=== PATIENT | female | born 1995 | race Caucasian/White ===

== ENCOUNTER 2017-03-09 22:30 | Emergency (ER) | payer MEDICAID, OTHER ==
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
[2017-03-09] MEDS ORDERED: SILVER SULFADIAZINE 25 GM CREAM TOP ONE (22:50)
[2017-03-09] MEDS ORDERED: ACETAMINOPHEN 325 MG TAB PO ONE (22:51)
[2017-03-09] MEDS ORDERED: Diph,Pert(Acell),Tet Vac 0.5 ML SYR IM ONE (22:52)
== END 2017-03-09 23:13 | disposition home or self-care (01) ==
LOC: ER 22:30
DX: T23.552A Corrosion of first degree of left palm, initial encounter (principal)
CPT/HCPCS: 16000; 90715; 96372; 99283

== ENCOUNTER 2018-03-31 22:12 | Emergency (ER) | payer MEDICAID ==
[2018-03-31] MEDS ORDERED: ACETAMINOPHEN 325 MG TAB PO ONE (22:34)
--- NOTE | 2018-03-31 22:37 | Emergency Department Record ---
History of Present Illness - General Chief Complaint: Ankle/Foot Injury Stated Complaint: R ANKLE PAIN Time Seen by Provider: 03/31/18 22:18 Source: Patient Mode of Arrival: Ambulatory Limitations: No limitations - History of Present Illness Initial Comments: The patient is here due to R ankle pain. She originally injured it 3 weeks ago and had a neg xray at that time. Since she has been using a R ankle walking boot and tonight she was walking and felt more pain in the area similar to when she originally injured it. She is scheduled for an MRI later this week. Complaint: Ankle injury Onset/Timin -: Week(s) Place: Home Severity: Moderate, Severe Severity scale (1-10): 8 Improves With: Immobilization Worsens With: Weight bearing Context: Fall Associated Symptoms: Snap/pop sensation, Ambulatory Treatments Prior to Arrival: Splint - Related Data Home Medications Medication Instructions Recorded Confirmed Last Taken Hydrocodone/Acetaminophen [[place] 1 each PO Q6H PRN 03/31/18 03/31/18 Unknown 5-325 Tablet] Levonorgestrel [Mirena] 1 each IY DAILY 03/31/18 03/31/18 Unknown Omeprazole 40 mg PO DAILY 03/31/18 03/31/18 Unknown Allergies Allergy/AdvReac Type Severity Reaction Status Date / Time cefprozil [From Cefzil] Allergy HIVES Verified 09/06/15 13:48 Travel Screening - Travel/Exposure Within Last 30 Days Have you traveled within the last 30 days?: No - Travel Symptoms Symptom Screening: None Review of Systems Constitutional: Denies: Chills, Fever Eyes: Denies: Eye discharge ENT: Denies: Congestion Respiratory: Denies: Cough, Dyspnea Past Medical History - SOCIAL HISTORY Smoking Status: Never smoker Alcohol Use: Occasional Drug Use: Occasional Drug Use Detail:: Marijuana - RESPIRATORY Hx Respiratory Disorders: No - CARDIOVASCULAR Hx Cardio Disorders: No - NEURO Hx Neuro Disorders: Yes Hx Headaches: Yes - GI Hx GI Disorders: No - Hx Genitourinary Disorders: No - ENDOCRINE Hx Endocrine Disorders: No - MUSCULOSKELETAL Hx Musculoskeletal Disorders: Yes Comment:: knee pain - PSYCH Hx Psych Problems: Yes Hx Anxiety: Yes Hx Depression: Yes Comment:: PTSD - HEMATOLOGY/ONCOLOGY Hx Hematology/Oncology Disorders: No Family Medical History Any Significant Family History?: Yes Family Hx Comment (NOT TO BE USED IN PLACE OF ITEMS BELOW): Mother-MS Hx Cancer: Mother, Grandparents Hx Diabetes: Father Hx HTN: Father Hx Seizures: Grandparents *Seizure Comment: Epilepsy Physical Exam - General General Appearance: Alert, Cooperative, No acute distress - Head Head exam: Atraumatic, Normocephalic - Eye Eye exam: Normal appearance - Extremities Extremities exam: Normal inspection, Tenderness (There is diffuse anterior, lateral and posterior ankle tenderness.), Other (The R foot is NVI. There is no ligamentous laxity.). negative: Calf tenderness, Full ROM, Joint swelling, Pedal edema - Neurological Neurological exam: Alert. negative: Motor sensory deficit Course Vital Signs 03/31/18 22:15 Temperature 98.5 F Pulse Rate 85 Respiratory 16 Rate Blood Pressure 139/85 Pulse Ox 100 - Reevaluation(s) Reevaluation #1: I did discuss the neg xrays with the patient and need to continue to have the MRI later this week. 03/31/18 22:51 Medical Decision Making - Data Complexity MDM Data: X-Ray Ordered and/or Reviewed - Radiology Data Radiology results: Report reviewed (R ankle: Neg for any acute injury.) Disposition Disposition: Discharge Clinical Impression: Ankle pain, right Qualifiers: Chronicity: acute Qualified Code(s): M25.571 - Pain in right ankle and joints of right foot Disposition: Home, Self-Care Condition: (2) Stable Instructions: Ankle Sprain (ED) Additional Instructions: Please continue your home pain medicines and wear your walking boot at all times. Please get your MRI as planned and see your family doctor next week for recheck. Forms: Patient Portal Access Time of Disposition: 22:53 Quality - Quality Measures Quality Measures: N/A - Blood Pressure Screening View Details: Yes Does Patient Have Any of the Following: No Blood Pressure Classification: Pre-Hypertensive BP Reading Systolic Measurement: 139 Diastolic Measurement: 85 Screening for High Blood Pressure: < Pre-Hypertensive BP, F/U Documented > [ G8950] Pre-Hypertensive Follow-up Interventions: Referral to alternative/primary care provider.
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
== END 2018-03-31 23:00 | disposition home or self-care (01) ==
LOC: ER 22:12
DX: G89.11 Acute pain due to trauma (principal); M25.571 Pain in right ankle and joints of right foot; X50.0XXA Overexertion from strenuous movement or load, initial encounter; Y92.009 Unspecified place in unspecified non-institutional (private) residence as the place of occurrence of the external cause
CPT/HCPCS: 99283

== ENCOUNTER 2018-08-26 11:52 | Emergency (ER) | payer MEDICAID ==
--- NOTE | 2018-08-26 12:29 | Emergency Department Record ---
History of Present Illness - General Chief complaint: Lower Extremity Pain Stated complaint: HIP PAIN RIGHT Time Seen by Provider: 08/26/18 12:06 Source: Patient Mode of Arrival: Ambulatory Limitations: No limitations - History of Present Illness Initial comments: The patient is here due to R hip pain for 2 months. It seems to hurt more with walking and twisting the R hip. The patient denies any trauma, injury or falls. She also denies any AP, nausea, vomiting, or diarrhea. MD Complaint: Joint pain Onset/Timin -: Month(s) Severity scale (1-10): 7 Quality: Aching, Stabbing Consistency: Constant Improves with: Nothing Worsens with: Walking, Weight bearing Associated Symptoms: Denies other symptoms - Related Data Home Medications Medication Instructions Recorded Confirmed Last Taken Hyoscyamine Sulfate [Levsin] 0.125 mg PO Q4H 08/26/18 08/26/18 08/25/18 Allergies Allergy/AdvReac Type Severity Reaction Status Date / Time cefprozil [From Cefzil] Allergy HIVES Verified 08/26/18 12:05 Travel Screening - Travel/Exposure Within Last 30 Days Have you traveled within the last 30 days?: Yes Location Detail:: [place] - Travel/Exposure Within Last Year Have you traveled outside the [place] in the last year?: No - Additonal Travel Details Have you been exposed to anyone with a communicable illness?: No - Travel Symptoms Symptom Screening: None Review of Systems Constitutional: Denies: Chills, Fever Eyes: Denies: Eye discharge ENT: Denies: Congestion Respiratory: Denies: Cough, Dyspnea Past Medical History - SOCIAL HISTORY Smoking Status: Never smoker Alcohol Use: Occasional Drug Use: Occasional Drug Use Detail:: Marijuana - RESPIRATORY Hx Respiratory Disorders: No - CARDIOVASCULAR Hx Cardio Disorders: No - NEURO Hx Neuro Disorders: Yes Hx Headaches: Yes - GI Hx GI Disorders: Yes Hx Irritable Bowel: Yes - Hx Genitourinary Disorders: No - ENDOCRINE Hx Endocrine Disorders: No - MUSCULOSKELETAL Hx Musculoskeletal Disorders: Yes Comment:: knee pain/ankle tear - PSYCH Hx Psych Problems: Yes Hx Anxiety: Yes Hx Depression: Yes Comment:: PTSD - HEMATOLOGY/ONCOLOGY Hx Hematology/Oncology Disorders: No Family Medical History Any Significant Family History?: No Family Hx Comment (NOT TO BE USED IN PLACE OF ITEMS BELOW): Mother-MS Hx Cancer: Mother, Grandparents Hx Diabetes: Father Hx HTN: Father Hx Seizures: Grandparents *Seizure Comment: Epilepsy Physical Exam - General General Appearance: Alert, Oriented x3, Cooperative, No acute distress - Head Head exam: Atraumatic, Normocephalic, Normal inspection - Eye Eye exam: Normal appearance, PERRL, EOMI - Neck Neck exam: Normal inspection, Full ROM. negative: Tenderness - Respiratory Respiratory exam: Normal lung sounds bilaterally. negative: Respiratory distress - Cardiovascular Cardiovascular Exam: Regular rate, Normal rhythm, Normal heart sounds - GI/Abdominal GI/Abdominal exam: Soft, Normal bowel sounds. negative: Rebound, Rigid, Tenderness - Extremities Extremities exam: Normal inspection, Full ROM (There is full ROM of the R hip with pain on full flexion, extension and internal rotation.), Normal capillary refill. negative: Joint swelling, Tenderness (There is mild R anterior hip tenderness to palpation.) Image of Full Body: 1 - Area of pain and tenderness. - Back Back exam: Reports: Normal inspection. Denies: Vertebral tenderness - Neurological Neurological exam: Alert, Normal gait. negative: Abnormal gait, Motor sensory deficit - Skin Skin exam: negative: Rash Course Vital Signs 08/26/18 11:54 Temperature 98.0 F Pulse Rate 78 Respiratory 16 Rate Blood Pressure 137/88 Pulse Ox 99 - Reevaluation(s) Reevaluation #1: The patient did decline any pain medicine here. She is up walking with no difficulty. I did discuss the need for further evaluation by her PCP next week. She is to take the Naprosyn for pain and F/U with her PCP. 08/26/18 13:20 Medical Decision Making - Data Complexity MDM Data: Labs Ordered and/or Reviewed, X-Ray Ordered and/or Reviewed - Radiology Data Radiology results: Report reviewed (R Hip: Neg.) Disposition Disposition: Discharge Clinical Impression: Hip pain, right Disposition: Home, Self-Care Condition: (2) Stable Instructions: Hip Pain (ED) Additional Instructions: Please take the Naprosyn for pain and please see your family doctor for recheck next week. Return to the ER for any worsening symptoms. Forms: Patient Portal Access Time of Disposition: 13:19 Quality - Quality Measures Quality Measures: N/A - Blood Pressure Screening View Details: Yes Does Patient Have Any of the Following: No Blood Pressure Classification: Pre-Hypertensive BP Reading Systolic Measurement: 137 Diastolic Measurement: 88 Screening for High Blood Pressure: < Pre-Hypertensive BP, F/U Documented > [G8950] Pre-Hypertensive Follow-up Interventions: Referral to alternative/primary care provider.
[2018-08-26 12:30] LABS: URINE APPEARANCE CLEAR; URINE BILIRUBIN NEGATIVE (NEGATIVE); URINE BLOOD MODERATE (NEGATIVE); URINE COLOR YELLOW; URINE GLUCOSE (UA) NEGATIVE (NEGATIVE); URINE KETONE NEGATIVE (NEGATIVE); URINE LEUKOCYTE ESTERASE NEGATIVE (NEGATIVE); URINE NITRITE NEGATIVE (NEGATIVE); URINE PROTEIN NEGATIVE (NEGATIVE); URINE UROBILINOGEN 0.2 E.U./dL (0.20 - 1.00)
[2018-08-26 12:40] LABS: HCG,QUALITATIVE URINE NEGATIVE (NEGATIVE)
[2018-08-26 12:43] LABS: URINE BACTERIA NONE SEEN; URINE MUCUS LIGHT; URINE WBC 0 - 2 (0-2/hpf)
[2018-08-26 12:44] LABS: URINE AMORPHOUS SEDIMENT 1+
--- NOTE | 2018-08-28 12:59 | RADIOLOGY REPORT ---
EXAM: HIP,UNILAT, 2-3 VIEW RIGHT HISTORY: WORSENING RIGHT HIP PAIN. FALL TWO MONTHS AGO. TECHNIQUE: An AP view of the pelvis is obtained as well as AP and frog-leg lateral views of the right hip. COMPARISON: CT abdomen and pelvis with contrast dated 09/09/2012. ENCOUNTER: Initial. FINDINGS: The osseous structures are normally mineralized. No fracture, dislocation, or destructive bone lesion is seen. The hip joints, sacroiliac joints, and lower lumbar spine are normal in appearance. No lytic or blastic bone lesion. No focal soft tissue abnormality. An intrauterine contraceptive device is in place centered in the midline at the mid to lower pelvis. IMPRESSION: NORMAL RIGHT HIP. JOB NUMBER: [id number] MTDD
== END 2018-08-26 13:23 | disposition home or self-care (01) ==
LOC: ER 11:52
DX: M25.551 Pain in right hip (principal)
CPT/HCPCS: 81001; 81025; 99283

== ENCOUNTER 2019-04-07 20:23 | Emergency (ER) | payer MEDICAID ==
[2019-04-07] MEDS ORDERED: IBUPROFEN 600 MG TABLET PO ONE (20:41)
[2019-04-07] MEDS ORDERED: ACETAMINOPHEN 500 MG TABLET PO ONE (20:41)
--- NOTE | 2019-04-07 20:45 | Emergency Department Record ---
History of Present Illness - General Chief Complaint: Fever Stated Complaint: FEVER AMD EYES HURT Time Seen by Provider: 04/07/19 20:28 Source: Patient Mode of Arrival: Ambulatory Limitations: No limitations - History of Present Illness Initial Comments: 23 yo female presents to ED for evaluation of fever for the past 3 days associated with body aches. Patient denies sore throat, denies neck stiffness symptoms, denies productive cough symptoms, and denies abdominal pain, nausea, or vomiting symptoms. Patient denies urinary symptoms or rash on examination. Patient denies health problems at her baseline, denies receiving an influenza vaccination this year. Patient has not taken anything for her fever symptoms in 6 hours. MD Complaint: Fever Onset/Timin -: Days(s) Associated Symptoms: Myalgias Treatments Prior to Arrival: None - Related Data Home Medications Medication Instructions Recorded Confirmed Last Taken Lamotrigine [Lamictal] 50 mg PO DAILY 04/07/19 04/07/19 04/06/19 Allergies Allergy/AdvReac Type Severity Reaction Status Date / Time cefprozil [From Cefzil] Allergy HIVES Verified 08/26/18 12:05 Review of Systems Constitutional: Reports: Fever. Denies: Chills, Malaise, Night sweats Eyes: Denies: Eye discharge, Eye pain ENT: Denies: Congestion, Ear pain, Epistaxis Respiratory: Denies: Cough, Dyspnea Cardiovascular: Denies: Chest pain, Dyspnea on exertion Endocrine: Reports: Fatigue. Denies: Heat or cold intolerance Gastrointestinal: Denies: Abdominal pain, Nausea, Vomiting Genitourinary: Denies: Incontinence, Retention Musculoskeletal: Denies: Arthralgia, Back pain Skin: Denies: Bruising, Change in color Neurological: Denies: Abnormal gait, Confusion, Headache, Seizure Psychiatric: Denies: Anxiety Hematological/Lymphatic: Denies: Anemia, Blood Clots Past Medical History - SOCIAL HISTORY Smoking Status: Never smoker Drug Use: Occasional Drug Use Detail:: Marijuana - RESPIRATORY Hx Respiratory Disorders: No - CARDIOVASCULAR Hx Cardio Disorders: No - NEURO Hx Neuro Disorders: Yes Hx Headaches: Yes - GI Hx GI Disorders: Yes Hx Irritable Bowel: Yes - Hx Genitourinary Disorders: No - ENDOCRINE Hx Endocrine Disorders: No - MUSCULOSKELETAL Hx Musculoskeletal Disorders: Yes Comment:: knee pain/ankle tear - PSYCH Hx Psych Problems: Yes Hx Anxiety: Yes Hx Depression: Yes Comment:: PTSD - HEMATOLOGY/ONCOLOGY Hx Hematology/Oncology Disorders: No Family Medical History Family Hx Comment (NOT TO BE USED IN PLACE OF ITEMS BELOW): Mother-MS Hx Cancer: Mother, Grandparents Hx Diabetes: Father Hx HTN: Father Hx Seizures: Grandparents *Seizure Comment: Epilepsy Physical Exam - General General Appearance: Alert, Oriented x3, Cooperative, Mild distress Limitations: No limitations - Head Head exam: Atraumatic, Normocephalic, Normal inspection Head exam detail: negative: Abrasion, Contusion, Mejia's sign, General tendern ess, Hematoma, Laceration - Eye Eye exam: Normal appearance. negative: Conjunctival injection, Periorbital swelling, Periorbital tenderness, Scleral icterus - ENT Ear exam: negative: Auricular hematoma, Auricular trauma Nasal Exam: negative: Active bleeding, Discharge, Dried blood, Foreign body Mouth exam: negative: Drooling, Laceration, Muffled voice, Tongue elevation Throat exam: negative: Tonsillar erythema, Tonsillomegaly, R peritonsillar mass, L peritonsillar mass - Neck Neck exam: Normal inspection, Lymphadenopathy (mild anterior cervical lymphadenopathy). negative: Meningismus - Respiratory Respiratory exam: Normal lung sounds bilaterally. negative: Rales, Respiratory distress, Rhonchi, Stridor - Cardiovascular Cardiovascular Exam: Regular rate, Normal rhythm, Normal heart sounds - GI/Abdominal GI/Abdominal exam: Soft. negative: Rebound, Rigid, Tenderness - Rectal Rectal exam: Deferred - exam: Deferred - Extremities Extremities exam: Normal inspection. negative: Pedal edema, Tenderness - Back Back exam: Denies: CVA tenderness (R), CVA tenderness (L) - Neurological Neurological exam: Alert, Oriented X3 - Psychiatric Psychiatric exam: Normal affect, Normal mood - Skin Skin exam: Normal color. negative: Abrasion Type of lesion: negative: abrasion Course Vital Signs 04/07/19 20:37 Temperature 103 F H Pulse Rate [ 117 H Pulse Ox Probe] Respiratory 20 Rate Blood Pressure 137/98 [Left Arm] Pulse Ox 97 - Reevaluation(s) Reevaluation #1: 04/07/19 20:59 Influenza: Negative Reevaluation #2: 04/07/19 21:37 Patient was reassessed, temperature down to 99.1, pulse 90. Patient is very well appearing on re-examination without evidence for bacterial source of infection on examination. Recommended symptomatic treatment with regular intervals of Tylenol/Motrin as needed for fever/body aches. Patient appears stable for discharge at this time. Disposition Disposition: Discharge Clinical Impression: Viral syndrome Disposition: Home, Self-Care Condition: (2) Stable Instructions: Viral Syndrome (ED) Additional Instructions: Return to ED if your symptoms worsen or if you have any concerns. Tylenol/Ibuprofen as directed. Follow-up with your family doctor in 3-5 days as directed. Forms: Patient Portal Access Time of Disposition: 21:39 Quality - Quality Measures Quality Measures: N/A - Blood Pressure Screening Does Patient Have Any of the Following: No Blood Pressure Classification: Hypertensive Reading Systolic Measurement: 137 Diastolic Measurement: 98 Screening for High Blood Pressure: < First Hypertensive BP, F/U Documented > [G8950] First Hypertensive Follow-up Interventions: Referral to alternative/primary care provider.
[2019-04-07 20:57] LABS: INFLUENZA A NEGATIVE (NEGATIVE); INFLUENZA B NEGATIVE (NEGATIVE)
== END 2019-04-07 21:50 | disposition home or self-care (01) ==
LOC: ER 20:23
DX: B34.9 Viral infection, unspecified (principal); R50.81 Fever presenting with conditions classified elsewhere
CPT/HCPCS: 87400; 99283